=== PATIENT | female | born 1935 | race Caucasian/White ===

== ENCOUNTER 2019-05-17 07:29 | Day surgery (SDC) | payer MEDICARE, MEDICAID ==
[~2019-05-17] VITALS: Ht 157.5 cm; Wt 59.0 kg
[2019-05-17] VITALS (12 sets, daily range): BP systolic 85–136; BP diastolic 54–70
[~2019-05-17 07:29] MED LIST: ALB520 IH; ALBU18HF2 IH; ATOR40TA PO; CARV3.12 PO; CIPR-260 PO; COU4T PO; DIPH25CA83 PO; FURO-150 PO; LANTUS SQ; LISI2.5T89 PO; OMEP-84 PO; SERT25TA PO; ZOLP5TAB8 PO
[2019-05-17] MEDS ORDERED: normal saline 1,000 ML IV SCH (07:55)
[2019-05-17] MEDS ORDERED: diphenhydrAMINE 25mg capsule PO PRN (07:55)
[2019-05-17] MEDS ORDERED: CLOP75TA15 PO (08:25)
[2019-05-17] MEDS ORDERED: GABA-532 PO (08:27)
[2019-05-17 08:50] LABS: BASOPHILS # (AUTO) 0.1 X10'3 (0-0.2); BASOPHILS % (AUTO) 1.2 % (0-1); EOSINOPHILS # (AUTO) 1.5 X10'3 (0-0.9); EOSINOPHILS % (AUTO) 25.6 % (0-6); HEMATOCRIT 33.6 % (35.0-45.0); HEMOGLOBIN 11.3 g/dl (12.0-16.0); LYMPHOCYTES % (AUTO) 16.6 % (21-51); MEAN CORPUSCULAR HEMOGLOBIN 35.1 PG (27.0-31.0); MEAN CORPUSCULAR HGB CONC 33.6 g/dL (33.0-36.5); MEAN CORPUSCULAR VOLUME 104.4 FL (78-98); MEAN PLATELET VOLUME 7.2 FL (7.4-10.4); MONOCYTES # (AUTO) 0.6 X10'3 (0-0.9); MONOCYTES % (AUTO) 9.4 % (2-12); NEUTROPHILS # (AUTO) 2.8 X10'3 (1.8-7.7); NEUTROPHILS % (AUTO) 47.2 % (42-75); PLATELET COUNT 207 X10'3 (140-440); RED BLOOD COUNT 3.22 X10'6 (4.20-5.60); RED CELL DISTRIBUTION WIDTH 14.3 % (11.5-14.5)
[2019-05-17 08:58] LABS: ALBUMIN 3.7 G/DL (3.4-5.0); ANION GAP 9 (8-16); BLOOD UREA NITROGEN 16 MG/DL (7-18); BUN/CREATININE RATIO 18.6 (6.6-38.0); CALCIUM 8.6 MG/DL (8.5-10.1); CHLORIDE 98 MMOL/L (99-107); CREATININE 0.86 MG/DL (0.40-0.90); GLUCOSE 153 MG/DL (70-104); MAGNESIUM 1.8 MG/DL (1.5-2.4); POTASSIUM 4.5 MMOL/L (3.5-5.1); SODIUM 132 MMOL/L (135-145); TOTAL CARBON DIOXIDE 24.6 MMOL/L (24-32); eGFR 63 ML/MIN
[2019-05-17] MEDS ORDERED: midazolam 2 mg/2 ml injection ONE ×4 (09:01→10:58)
[2019-05-17] MEDS ORDERED: ceFAZolin 1GM/D5W- ADD-VANTAGE 50 ML IV ONE (09:01)
[2019-05-17] MEDS ORDERED: vancomycin 1,000mg inj ONE (09:02)
[2019-05-17] MEDS ORDERED: ceFAZolin 1000mg inj ONE (09:02)
[2019-05-17] MEDS ORDERED: LIDOcaine 1% w/EPI 1:100,000 30ml vial (MDV) ONE (09:02)
[2019-05-17] MEDS ORDERED: fentaNYL/PF 50MCG/1 ML 2ML syringe ONE ×3 (09:02→11:16)
[2019-05-17] MEDS ORDERED: iohexol 350 MG/ML 50ML vial IV ONE (09:05)
[2019-05-17 09:09] LABS: PLATELET ESTIMATE NORMAL; TOTAL CELLS COUNTED 100
--- NOTE | 2019-05-17 09:20 | NUR ---
Dr. Finley at bedside informed him of INR 2.1, MD states its ok to continue with procedure. PICC RN at bedside, pt is difficult IV access. aware.
[2019-05-17] MEDS ORDERED: HYDROcodone/acetaminophen 10/325mg tab PO PRN (12:40)
[2019-05-17] MEDS ORDERED: HYDROcodone/acetaminophen 5mg/325mg tablet PO PRN (12:40)
[2019-05-17] MEDS ORDERED: ketorolac tromethamine 15mg/ml inj. IV ONE (12:40)
== END 2019-05-17 16:05 | disposition home or self-care (01) ==
LOC: SSTAY O 07:29
PROVIDERS: ATTEND Internal Medicine Cardiovascular Disease
DX: I44.7 Left bundle-branch block, unspecified (principal); I25.10 Atherosclerotic heart disease of native coronary artery without angina pectoris; J44.9 Chronic obstructive pulmonary disease, unspecified; E10.9 Type 1 diabetes mellitus without complications; I42.8 Other cardiomyopathies; I47.2 Ventricular tachycardia; E78.00 Pure hypercholesterolemia, unspecified; Z86.718 Personal history of other venous thrombosis and embolism; Z79.01 Long term (current) use of anticoagulants
CPT/HCPCS: 33225; 33249; 36415; 71046; 80048; 82948; 83735; 85025; 85610; 93005; 93641; 99152; 99153; C1769; C1882; C1887; C1894; C1895; C1900; J0690; J1885; J2250; J3010; J3370; J7030; Q0163; Q9967; A4565; A4620; A6449